=== PATIENT | male | born 1960 | race Caucasian/White ===

== ENCOUNTER 2024-04-29 13:28 | Day surgery (SDC) | payer MEDICAID, SELFPAY ==
[2024-04-29 13:54] VITALS: BP 142/92; PULSE 90; RESP 18; TEMP 36.6; O2SAT 99; BMI 29.6
--- NOTE | 2024-04-29 14:22 | PCM.PRE.AN2 ---
ASA Classification* ASA Classification ASA Classification: 2 Assessment & Plan Anesthesia* Anesthesia Assessment Anesthesia Assessment: Discussed sedation and/or anesthesia options, risks, benefits, and alternatives with patient/parents/legal guardian/POA. Questions invited. The patient/parents/legal guardian/POA seems to understand and agrees to proceed with anesthesia plan. Reviewed the physical assessment, medical history, allergy history and patient home medications list prior to surgery/procedure/anesthetic and documented any changes. Performed airway and anesthesia risk assessments. Anesthesia Type Anesthesia Type: MAC History Source History Obtained from:: Patient Anesthesia Focused Assessment* Temperature: 97.8 F Pulse Rate: 90 Blood Pressure: 142/92 Respiratory Rate: 18 Pulse Ox: 99 Airway Assessment Mouth opens: >3 cm Mallampati Score: II Teeth Condition: Intact Neck Range of motion (ROM): Limited ROM Focused Labs Anesthesia Preop lab: CBC WBC 5.2 K/mm3 (4.4-11.0) 06/28/15 05:35 RBC 3.56 M/mm3 (4.6-6.2) L 06/28/15 05:35 Hgb 8.9 g/dl (13.0-16.5) L 06/28/15 05:35 Hct 29.4 % (40-54) L 06/28/15 05:35 Plt Count 263 K/mm3 (150-450) 06/28/15 05:35 CHEMISTRY Potassium 4.1 mmol/L (3.5-5.1) 06/28/15 05:35 Sodium 147 mmol/L (136-145) H 06/28/15 05:35 Magnesium 2.0 mg/dL (1.8-2.4) 05/15/15 06:05 Phosphorus 3.0 mg/dL (2.5-4.9) 05/15/15 06:05 BUN 13 mg/dL (7-18) 06/28/15 05:35 Creatinine 0.97 mg/dL (0.70-1.30) 06/28/15 05:35 Glucose 169 mg/dL (70-110) H 06/28/15 05:35 COAG Pre-Assessment Diagnosis/Proposed Procedure Planned Operative Procedure(s): colonoscopy Anesthesia History Anesthesia History - certified nurse midwife: Anesthesia History - certified nurse midwife Hx Hospitalization No 04/29/24 13:54 Any Problems With Anesthesia No 04/29/24 13:54 Cholinesterase deficiency No 04/29/24 13:54 You/Your Family Experience No 04/29/24 13:54 fever (hyperthermia) with Relationship Recent Exposure to Contagious No 04/29/24 13:54 Disease Does patient have nerve No 04/29/24 13:54 stimulator Patient instructed to have device shut off --Does patient have Pacemaker No 04/29/24 13:54 or ICD? When Was Last Pacemaker Check QUESTION #4 FULL TEXT: You/Your Family Experience fever (hyperthermia) with Anesthesia Last Oral Intake Last Oral intake: Last Oral Intake NPO since 00:00 04/29/24 13:54 Meds taken in AM with sips of water? Meds patient instructed to take am of surgery PONV PONV - certified nurse midwife: PONV - certified nurse midwife Female No 04/29/24 13:54 HX of Motion Sickness No 04/29/24 13:54 HX of N/V After Surgery No 04/29/24 13:54 Non-Smoker Yes 04/29/24 13:54 Duration of Surgery greater No 04/29/24 13:54 than 60 minutes Number of Risk Factors 1 04/29/24 13:54 PONV Score Low Risk 04/29/24 13:54 Height & Weight Height & Weight: Anesthesia: Height & Weight Height 5 ft 5.5 in 04/29/24 13:54 Weight: 82 kg 04/29/24 13:54 Body Mass Index (BMI) 29.6 04/29/24 13:54 Respiratory Assessment Respiratory Assessment - certified nurse midwife: Respiratory Tract Infection Hx - certified nurse midwife Hx Respiratory Tract Infection No 04/29/24 13:54 STOP Sleep Apnea STOP Sleep Apnea - certified nurse midwife: STOP Sleep Apnea - certified nurse midwife Hx Hypertension Yes 04/29/24 13:54 Hx Sleep Apnea No 04/29/24 13:54 CPAP No 06/27/15 12:54 BIPAP No 06/27/15 12:54 Do you snore loudly (louder No 04/29/24 13:54 than talking or can be heard Do you often feel tired/ Yes 04/29/24 13:54 fatigued/ sleepy during daytime? Has anyone observed you stop No 04/29/24 13:54 breathing during sleep? STOP Results Positive 04/29/24 13:54 QUESTION #5 FULL TEXT : Do you snore loudly (louder than talking or can be heard through closed doors)? Tobacco Use History Tobacco Use History - certified nurse midwife: Tobacco Use History - certified nurse midwife Tobacco Use Smoking Status Former smoker 04/29/24 13:54 Hx Tobacco Use No 04/29/24 13:54 Years Smoking Packs Smoked per Day Smoking Cessation Date was No - quit smoking greater 04/29/24 13:54 within the last 15 years than 15 years ago Hx Smoking Cessation Date Hx Smoking Cessation No 04/29/24 13:54 Counseling Hematologic Medial History Hematologic Hx - certified nurse midwife: Hematologic Medical Hx - documentation analyst Hx of Blood Transfusion Yes 04/29/24 13:54 Hx of Transfusion in last 3 No 04/29/24 13:54 Months Date of Last Transfusion (if within last 3 months) Ever experience any problems No 04/29/24 13:54 with transfusion(s)? Specify any problems Hx of Preganancy in last 3 N/A 04/29/24 13:54 Months Nurse Filling Out Transfusion DPRIEST 04/29/24 13:54 & Questions: Date: 04/29/24 04/29/24 13:54 Time: 13:59 04/29/24 13:54 Patient unable to answer at this time (ie. confused, unrespo /Reproduction History /Reproductive History - certified nurse midwife: /Reproductive Hx- certified nurse midwife Hx Now No 04/29/24 13:54 Gestational Age (in weeks): EDC: Hx Hx Para Hx Section SAB PFSH Medical History Wears glasses Alcohol use Back pain Restless legs Former smoker Hypertension Hyperlipidemia Hx of colonic polyps Tachycardia Hypokalemia Acute renal failure Diarrhea Ulcerative colitis Hypertension Home Medications ?Medication ?Instructions ?Recorded ?Last Taken ?Type atorvastatin 10 mg tablet 10 mg PO DAILY 07/27/23 04/28/24 History hydrochlorothiazide 12.5 mg tablet 12.5 mg PO DAILY 07/27/23 04/28/24 History losartan 50 mg tablet 50 mg PO DAILY 07/27/23 04/28/24 History metoprolol tartrate 50 mg tablet 100 mg PO BID 07/27/23 04/28/24 History mesalamine 0.375 gram 0.75 g PO BID ULCERATIVE COLITIS 08/14/23 04/28/24 History capsule,extended release 24 hr Allergy/AdvReac Type Severity Reaction Status Date / Time No Known Allergies Allergy Verified 04/29/24 13:52 Family History (Updated 07/27/23 @ 15:12 by Angelica Sandoval) Aunt Colon cancer Surgical History (Updated 04/29/24 @ 13:51 by Maeve Cervantes) Hx of tonsillectomy History of hernia surgery History of cornea transplant Hx of colonoscopy Social History (Updated 07/27/23 @ 15:13 by Angelica Sandoval) household members: none current occupational status: unemployed Smoking Status: Former smoker Review of Systems (Anesthesia) ROS Narrative System reviewed and no additional complaints, except as documented. Physical Exam Const alert Orientation / Consciousness: awake
[2024-04-29 14:23] VITALS: BP 142/92; PULSE 90; RESP 18; TEMP 36.6; O2SAT 99
--- NOTE | 2024-04-29 14:30 | COLBX_PTH ---
PATIENT: NICOLA MACEDO LOC: EN U#:[id number] AGE/SX: 63/M ROOM: RE04/29/[address]: Dr. Steve Calvo DO : 1960 BED: DIS: 04/29/2024 SPEC #: [id number] RECD: 04/29/24 17:17 STATUS: NISHANT LARA #: [id number] BEAU: 04/29/24 14:[address]: Steve Calvo DEPT: SURGICAL PATHOLOGY RECD BY: Carmen Ball ENTERED: 05/02/24 09:54 SP TYPE: COLON BX VIOLA DR: Dr. Jair Infante MD Tissues: A - COLON BIOPSY B - Transverse colon C - COLON BIOPSY D - Sigmoid colon biopsy E - Rectum, NOS Procedures: Surgery Specimen Level IV HEADER OPERATION: Colonoscopy PRE-OP DIAGNOSIS: Ulcerative colitis TISSUE SUBMITTED: A- Right side colon biopsy, B- Transverse colon biopsy, C- Left side colon biopsy, D- Sigmoid colon biopsy, E- Rectal biopsy MICROSCOPIC DIAGNOSIS A. Right side colon, biopsy: Focal crypt abscess, cryptitis and plasmacytosis. No dysplasia identified. B. Transverse colon, biopsy: No cryptitis or crypt abscess or plasmacytosis. No dysplasia identified. C. Left side colon, biopsy: No cryptitis or crypt abscess or plasmacytosis. No dysplasia identified. D. Sigmoid colon, biopsy: No cryptitis or crypt abscess or plasmacytosis. No dysplasia identified. E. Rectum, biopsy: No cryptitis or crypt abscess or plasmacytosis. No dysplasia identified. 05/03/2024 MICROSCOPIC DESCRIPTION Slides are reviewed. GROSS DESCRIPTION A. Received in fixative is one container labeled with the patient's name and designated Right side colon biopsy. The specimen consists of multiple irregular fragments of light polanco soft tissue that in aggregate measure 1 x 0.5 x 0.1 cm. The specimen is totally submitted in one cassette. B. Received in fixative is one container labeled with the patient's name and designated Transverse colon biopsy. The specimen consists of multiple irregular fragments of light polanco soft tissue that in aggregate measure 0.7 x 0.5 x 0.1 cm. The specimen is totally submitted in one cassette. C. Received in fixative is one container labeled with the patient's name and designated Left side colon biopsy. The specimen consists of multiple irregular fragments of light polanco soft tissue that in aggregate measure 0.9 x 0.3 x 0.1 cm. The specimen is totally submitted in one cassette. D. Received in fixative is one container labeled with the patient's name and designated Sigmoid colon biopsy. The specimen consists of two irregular fragments of light polanco soft tissue that in aggregate measure 1 x 0.5 x 0.1 cm. The specimen is totally submitted in one cassette. E. Received in fixative is one container labeled with the patient's name and designated Rectal biopsy. The specimen consists of two irregular fragments of light polanco soft tissue that in aggregate measure 0.5 x 0.3 x 0.1 cm. The specimen is totally submitted in one cassette. 05/02/2024 TC:2 CPT:08553o9
--- NOTE | 2024-04-29 14:36 | HP.PCM_ITS ---
HPI - General General Date of Admission: 04/29/24 Date of Service: 04/29/24 Chief Complaint: Ulcerative colitis HPI Narrative NICOLA MACEDO, is a 63 M who presents today for surveillance colonoscopy. His past medical history of ulcerative colitis. He is on mesalamine. He also has a past medical hypertension. Overall he is in very good health. [facility] Medical History (Updated 04/29/24 @ 14:[address] Steve Calvo, DO) Ulcerative colitis Wears glasses Alcohol use Back pain Restless legs Former smoker Hypertension Hyperlipidemia Hx of colonic polyps Tachycardia Hypokalemia Acute renal failure Diarrhea Hypertension Home Medications ?Medication ?Instructions ?Recorded ?Last Taken ?Type atorvastatin 10 mg tablet 10 mg PO DAILY 07/27/23 04/28/24 History hydrochlorothiazide 12.5 mg tablet 12.5 mg PO DAILY 07/27/23 04/28/24 History losartan 50 mg tablet 50 mg PO DAILY 07/27/23 04/28/24 History metoprolol tartrate 50 mg tablet 100 mg PO BID 07/27/23 04/28/24 History mesalamine 0.375 gram 0.75 g PO BID ULCERATIVE COLITIS 08/14/23 04/28/24 History capsule,extended release 24 hr Allergy/AdvReac Type Severity Reaction Status Date / Time No Known Allergies Allergy Verified 04/29/24 13:52 Family History Aunt Colon cancer Surgical History Hx of tonsillectomy History of hernia surgery History of cornea transplant Hx of colonoscopy Social History household members: none current occupational status: unemployed Smoking Status: Former smoker ROS Constitutional Constitutional: Denies fatigue, fever(s), poor appetite, weight gain or weight loss Gastrointestinal Gastrointestinal: Denies belching, bloating, change in bowel habits, change in stool character, chewing difficulty, coffee ground emesis, constipation, cramping, diarrhea, dyspepsia, dysphagia, early satiety, excessive flatus, fecal incontinence, heartburn, hematemesis, hematochezia, hemorrhoids, loose stools, melena, nausea, odynophagia, rectal bleeding, tenesmus, vomiting or weight changes Vital Signs Vital Signs Vital Signs: 04/29/24 13:54 04/29/24 13:54 04/29/24 14:23 Temperature 97.8 F 97.8 F Temperature Source Temporal Pulse Rate 90 90 Respiratory Rate 18 18 Respiratory Pattern Normal Blood Pressure 142/92 H 142/92 H Blood Pressure Mean 108 Blood Pressure Source Monitor Blood Pressure Position Semi-Fowlers Blood Pressure Location Right Arm Pulse Ox 99 99 Oxygen Delivery Method Room Air Weight Weight: 180 lb 12.465 oz Body Mass Index (BMI) 29.6 Physical Exam Const alert, oriented x3, no apparent distress and healthy appearing General Appearance: cooperative GI normal to inspection, nondistended, normoactive bowel sounds, soft to palpation, non-tender and non-distended Percussion: normal to percussion Rectal Exam: deferred Assessment & Plan Assessment/Plan (1) Encounter for screening for malignant neoplasm of colon: (2) Ulcerative colitis: PLAN: He was explained alternatives, risk and benefits include not withstanding bleeding, infection, sepsis, perforation, need for charge and . He will have an ASA of 3.
--- NOTE | 2024-04-29 15:07 | PCM.POST.ANE ---
Anesthesia: Postop Eval I Current Vital Signs Temperature: 97.9 F Pulse Rate: 80 Blood Pressure: 98/65 Respiratory Rate: 20 Pulse Ox: 93 Assessment Airway patent: Yes Spontaneous unlabored respirations: Yes nausea: No Vomiting: No Anesthesia Complication: No Fluid Hydration Crystalloid volume administer (ml): 0 Total IV fluid infused: 0 Progress Note Anesthesia document: Postop Eval 1 completed: Yes
[2024-04-29 15:09] VITALS: BP 98/65; PULSE 80; RESP 20; TEMP 36.6; O2SAT 93
--- NOTE | 2024-04-29 15:09 | OP.COLON_ITS ---
Patient Name: Tyrese Baldwin Procedure Date: 04/29/2024 2:43 PM Date of : 1960 Age: 63 Procedure: Colonoscopy Indications: Disease activity assessment of chronic ulcerative pancolitis Providers: Steve Calvo DO Medicines: Monitored Anesthesia Care Patient Profile: This is a 63 year old male. Refer to note in patient chart for documentation of history and physical. Last Colonoscopy: several years ago. Complications: No immediate complications. Procedure: Pre-Anesthesia Assessment: - Prior to the procedure, a History and Physical was performed, and patient medications and allergies were reviewed. The patient is competent. The risks and benefits of the procedure and the sedation options and risks were discussed with the patient. All questions were answered and informed consent was obtained. Patient identification and proposed procedure were verified by the physician in the pre-procedure area. Mental Status Examination: alert and oriented. Airway Examination: normal oropharyngeal airway and neck mobility. Respiratory Examination: clear to auscultation. CV Examination: normal. Prophylactic Antibiotics: The patient does not require prophylactic antibiotics. Prior Anticoagulants: The patient has taken no anticoagulant or antiplatelet agents except for NSAID medication. ASA Grade Assessment: III - A patient with severe systemic disease. After reviewing the risks and benefits, the patient was deemed in satisfactory condition to undergo the procedure. The anesthesia plan was to use monitored anesthesia care (MAC). Immediately prior to administration of medications, the patient was re-assessed for adequacy to receive sedatives. The heart rate, respiratory rate, oxygen saturations, blood pressure, adequacy of pulmonary ventilation, and response to care were monitored throughout the procedure. The physical status of the patient was re-assessed after the procedure. After I obtained informed consent, the scope was passed under direct vision. Throughout the procedure, the patient's blood pressure, pulse, and oxygen saturations were monitored continuously. The Colonoscope was introduced through the anus and advanced to the cecum, identified by appendiceal orifice and ileocecal valve. The colonoscopy was performed without difficulty. The patient tolerated the procedure well. The quality of the bowel preparation was adequate. The ileocecal valve, appendiceal orifice, and rectum were photographed. Scope In: 2:51:31 PM Scope Withdrawal Time 0 hours 6 minutes 14 seconds Scope Out: 3:01:04 PM Total Procedure Duration Time 0 hours 9 minutes 33 seconds Findings: The perianal and digital rectal examinations were normal. Inflammation was found in a continuous and circumferential pattern from the rectum to the cecum. This was graded as Ni Score 1 (mild, with erythema, decreased vascular pattern, mild friability), and when compared to the previous examination, the findings are unchanged. Biopsies were taken with a cold forceps for histology. Verification of patient identification for the specimen was done. Estimated blood loss was minimal. The exam was otherwise without abnormality on direct and retroflexion views. Stool was found at the hepatic flexure, in the ascending colon and in the cecum. Impression: - Mild (Ni Score 1) ulcerative colitis, unchanged since the last examination. Biopsied. - The examination was otherwise normal on direct and retroflexion views. Recommendation: - Discharge patient to home. - Resume previous diet. - Continue present medications. - Await pathology results. - Repeat colonoscopy in 2 years for surveillance. Procedure Code(s): --- Professional --- 57336, Colonoscopy, flexible; with biopsy, single or multiple CPT copyright 2021 [employer]. All rights reserved. The codes documented in this report are preliminary and upon automatic outsole cutter review may be revised to meet current compliance requirements. Steve Calvo DO 04/29/2024 3:09:27 PM This report has been signed electronically. Number of Addenda: 0 Note Initiated On: 04/29/2024 2:43 PM
--- NOTE | 2024-04-29 15:09 | OP.CCLET_ITS ---
04/29/2024 Jair Infante [address] [place] [address] Re : Colonoscopy procedure for Tyrese Baldwin Dear Dr. Infante This procedure was performed on Monday, April 29, 2024. My impressions and recommendations are as follows: Impressions : - Mild (Ni Score 1) ulcerative colitis, unchanged since the last examination. Biopsied. - The examination was otherwise normal on direct and retroflexion views. Recommendations : - Discharge patient to home. - Resume previous diet. - Continue present medications. - Await pathology results. - Repeat colonoscopy in 2 years for surveillance. My findings are described in the full procedure note, which is enclosed. If I can be of further assistance, please feel free to contact me at . Sincerely, Steve Friend, 04/29/2024 3:09:27 PM This report has been signed electronically.
[2024-04-29 15:10] VITALS: BP 142/92; BP 98/65; PULSE 94; RESP 16; TEMP 36.6; O2SAT 91
[2024-04-29 15:15] VITALS: BP 100/69; BP 142/92; PULSE 87; PULSE 91; RESP 16; TEMP 36.6; O2SAT 93; O2SAT 94
--- NOTE | 2024-04-29 15:41 | POSTOPAN2_ITS ---
Anesthesia Postop Eval I Sum Postop Eval Completion status Anesthesia document: Postop Eval 1 completed: Yes Anesthesia Postop Eval I Summary Anesthesia Postop Eval I Summary: Anesthesia Postop Eval I: Assessment Summary Airway patent Yes 04/29/24 15:09 NECK BAND [email or web address] Spontaneous unlabored Yes 04/29/24 15:09 NECK BAND SETTER.CSIR respirations Mental status nausea No 04/29/24 15:09 NECK BAND SETTER.CSIR Vomiting No 04/29/24 15:09 NECK BAND SETTER.CSIR Anesthesia Postop Eval I: Fluid Summary Crystalloid volume administer 0 04/29/24 15:09 NECK BAND SETTER.CSIR (ml) Colloids volume administered ( ml) Blood Product volume administered (ml) Total IV fluid infused 0 04/29/24 15:09 NECK BAND SETTER.CSIR Anesthesia Postop Eval I: Summary Notes Anesthesia Complication No 04/29/24 15:09 NECK BAND SETTER.CSIR Anesthesia Complication Comment: Post-operative progress note Anesthesia: Postop Eval II Evaluation Mental status: Awake Pain Level: 0 nausea: No Vomiting: No
--- NOTE | 2024-04-29 15:41 | PCM.POSTANE2 ---
Anesthesia Postop Eval I Sum Postop Eval Completion status Anesthesia document: Postop Eval 1 completed: Yes Anesthesia Postop Eval I Summary Anesthesia Postop Eval I Summary: Anesthesia Postop Eval I: Assessment Summary Airway patent Yes 04/29/24 15:09 CRACK OFF PERSON.CSIR Spontaneous unlabored Yes 04/29/24 15:09 CRACK OFF PERSON.CSIR respirations Mental status nausea No 04/29/24 15:09 CRACK OFF PERSON.CSIR Vomiting No 04/29/24 15:09 CRACK OFF PERSON.CSIR Anesthesia Postop Eval I: Fluid Summary Crystalloid volume administer 0 04/29/24 15:09 CRACK OFF PERSON.CSIR (ml) Colloids volume administered ( ml) Blood Product volume administered (ml) Total IV fluid infused 0 04/29/24 15:09 CRACK OFF PERSON.CSIR Anesthesia Postop Eval I: Summary Notes Anesthesia Complication No 04/29/24 15:09 CRACK OFF PERSON.CSIR Anesthesia Complication Comment: Post-operative progress note Anesthesia: Postop Eval II Evaluation Mental status: Awake Pain Level: 0 nausea: No Vomiting: No
[2024-04-29 15:45] VITALS: BP 142/92
== END 2024-04-29 15:55 | disposition home or self-care (01) ==
LOC: EN 13:33 → AC 13:33
PROVIDERS: PCP Internal Medicine; Referring Provider Internal Medicine; Visit Provider Internal Medicine Gastroenterology
PROC: 0DJD8ZZ Inspection of Lower Intestinal Tract, Via Natural or Artificial Opening Endoscopic (ICD-10-PCS; CPT 45378; principal; 2024-04-29 14:25)
DX: Z12.11 Encounter for screening for malignant neoplasm of colon (principal); K51.90 Ulcerative colitis, unspecified, without complications; E78.5 Hyperlipidemia, unspecified; I10 Essential (primary) hypertension; Z87.891 Personal history of nicotine dependence; Z79.899 Other long term (current) drug therapy; Z86.0100 Personal history of colon polyps, unspecified; K63.0 Abscess of intestine; K62.89 Other specified diseases of anus and rectum; D72.822 Plasmacytosis
CPT/HCPCS: 45380; 88305; A4216